=== PATIENT | male | born 1995 | race Caucasian/White ===

== ENCOUNTER 2017-02-03 12:10 | Emergency (ER) | payer OTHER ==
[2017-02-03 12:23] VITALS: BP 116/82; PULSE 101; TEMP 99.3; BMI 24.2
[2017-02-03] MEDS ORDERED: IBUPROFEN 400 MG TABLET (FP) PO ONE (12:39)
[2017-02-03] MEDS ORDERED: AZITHROMYCIN 250 MG TABLET (FP) PO ONE (12:39)
--- NOTE | 2017-02-03 12:40 | PDOC ---
History of Present Illness - General Chief Complaint: Lightheaded Stated Complaint: DIZZY, BACK PAIN, SOB Time Seen by Provider: 02/03/17 12:38 History Source: Patient Exam Limitations: No Limitations - History of Present Illness Initial Comments: 02/03/17 12:55 22 yo with sore throat, muscle aches, fever and shaking rigor last night, also says his right testicle feels heavy. No urethral discharge (sexually active, women, condoms). He did not have any medicine to take at home. His brother is also a patient in the ED today with similar symptoms, although not as bad. Nontoxic, NAD, Appears Well Severity: mild Associated Symptoms: reports: cough, fever/chills, other (testicular heaviness) Past History - Past Medical History Allergies/Adverse Reactions: Allergies Allergy/AdvReac Type Severity Reaction Status Date / Time No Known Allergies Allergy Verified 02/03/17 12:12 Home Medications: Ambulatory Orders No Home Medications 0 dose .ROUTE UTDICT 07/03/13 Azithromycin [Zithromax -] 250 mg PO DAILY #7 tablet 02/03/17 Ibuprofen [Motrin -] 600 mg PO TID #90 tablet 02/03/17 Other medical history: DENIES - Immunization History Immunization Up to Date: Yes - Psycho/Social/Smoking Cessation Hx Anxiety: No Suicidal Ideation: No Smoking Status: No Smoking History: Never smoked Have you smoked in the past 12 months: No Number of Cigarettes Smoked Daily: 0 Information on smoking cessation initiated: No Hx Alcohol Use: No Drug/Substance Use Hx: No Substance Use Type: None Review of Systems - Review of Systems Able to Perform ROS?: Yes Is the patient limited Danish proficient: Yes Constitutional: Yes: See HPI HEENTM: Yes: Throat Pain Respiratory: Yes: Cough Cardiac (ROS): No: Symptoms Reported ABD/GI: Yes: Other (Left Testicle feels heavy). No: Symptoms Reported Musculoskeletal: Yes: Symptoms Reported, Muscle Pain Integumentary: No: Symptoms Reported Neurological: No: Symptoms reported Psychiatric: No: Anxiety, Depression Endocrine: No: Symptoms Reported Hematologic/Lymphatic: No: Symptoms Reported All Other Systems: Reviewed and Negative *Physical Exam - Vital Signs Last Vital Signs Temp Pulse Resp BP Pulse Ox 99.3 F 101 H 20 116/82 100 02/03/17 12:10 02/03/17 12:10 02/03/17 12:10 02/03/17 12:10 02/03/17 12:10 02/03/17 13:52 VSS, NonToxic, NAD HEENT, Pharynx Erythematous without exudates NECK, Supple with Bilateral Anterior Chain Adenopathy CHEST CTA HEART RRR no MURMUR ABD Soft and Nontender Spleen. BS x 4q Benign GENT No Swelling, No Abnormal Lie, No Tenderness, No Cord Tenderness EXTR Unremarkable *DC/Admit/Observation/Transfer Diagnosis at time of Disposition: Muscle pain, Rigors Pharyngitis Qualifiers: Pharyngitis/tonsillitis etiology: unspecified etiology Qualified Code(s): J02.9 - Acute pharyngitis, unspecified Fever Qualifiers: Fever type: unspecified Qualified Code(s): R50.9 - Fever, unspecified - Discharge Dispostion Disposition: HOME Condition at time of disposition: Improved - Prescriptions Prescriptions: Ibuprofen [Motrin -] 600 mg PO TID #90 tablet Azithromycin [Zithromax -] 250 mg PO DAILY #7 tablet - Patient Instructions Printed Discharge Instructions: DI for Pharyngitis/Tonsillopharyngitis -- Adult Additional Instructions: Renaldo, Take the Motrin three times a day for Fever, Muscle Aches and Pains Take the Zithromax once a day for 7 days. Drink 5 20 oz bottles of water - (You are a little dehydrated) each day while taking the zithromax Return to us if worse or new symptoms occur Best- Dr. Louie Fish
[2017-02-03] MEDS ORDERED: AZITHROMYCIN 250 MG TABLET (FP) ONE (12:50)
[2017-02-03 13:05] LABS: URINE APPEARANCE Clear; URINE BILIRUBIN 1+ (NEGATIVE); URINE BLOOD Negative (NEGATIVE); URINE GLUCOSE (UA) Negative (NEGATIVE); URINE KETONE 2+ (NEGATIVE); URINE LEUK ESTERASE Negative (NEGATIVE); URINE NITRITE Negative (NEGATIVE); URINE PROTEIN Trace (NEGATIVE); URINE UROBILINOGEN >=8.0 E.U./dl (0.2-1.0)
[2017-02-03 13:06] LABS: URINE COLOR YELLOW
== END 2017-02-03 14:10 | disposition home or self-care (01) ==
LOC: FER 12:10
DX: J02.9 Acute pharyngitis, unspecified (principal); M79.1 Myalgia; R68.89 Other general symptoms and signs
CPT/HCPCS: 36415; 81003; 87070; 87430; 87491; 87591; 99284-25